=== PATIENT | female | born 1970 | race Caucasian/White ===

== ENCOUNTER → 2022-09-20 10:31 | Outpatient (BNVA) | payer BC, SELFPAY | PROVIDERS: PCP Nurse Practitioner Family; Visit Provider Surgery Vascular Surgery ==

== ENCOUNTER 2022-10-03 13:23 | Outpatient (REF) | payer BC, SELFPAY ==
--- NOTE | ~2022-10-03 | US_ITS ---
EXAMINATION: US LOWER EXTREMITY VENOUS (REFLUX EXAM), BILATERAL CLINICAL INDICATION: Varicose veins of the right lower extremity COMPARISON: None. TECHNIQUE: Color flow triplex imaging and compression Doppler was performed to evaluate both the deep and the superficial systems bilaterally. To evaluate the superficial system, the examination was performed in the upright position. Color-flow Doppler ultrasound and compression ultrasound were utilized. In addition, maneuvers were utilized to demonstrate reflux. FINDINGS: RIGHT: 1. DEEP VENOUS ULTRASOUND OF THE RIGHT LOWER EXTREMITY: Common Femoral Vein: Compressible, normal respiratory variation and augmented flow. Popliteal Vein: Compressible, normal augmentation. Deep Venous Reflux: There is no evidence of reflux in the deep system in either the common femoral vein or the popliteal vein. There is no evidence of a Olivares's cyst. 2. SUPERFICIAL ULTRASOUND WITH DOPPLER OF RIGHT LOWER EXTREMITY: RIGHT GREAT SAPHENOUS VEIN: Saphenofemoral Junction: 5 mm. No reflux. Proximal Thigh: 7 mm. No reflux. Mid Thigh: 4 mm. No reflux. Above Knee: 4 mm. No reflux. Below Knee: 3 mm. No reflux. Mid Calf: 2 mm. No reflux. Ankle: 2 mm. No reflux. DUPLICATED GREAT SAPHENOUS VEIN: None RIGHT SMALL SAPHENOUS VEIN: Proximal: 4 mm. No reflux. Distal: 3 mm. No reflux. PERFORATORS: None LEFT: 1. DEEP VENOUS ULTRASOUND OF THE LEFT LOWER EXTREMITY: Common Femoral Vein: Compressible, normal respiratory variation and augmented flow. Popliteal Vein: Compressible, normal augmentation. Deep Venous Reflux: There is no evidence of reflux in the deep system in either the common femoral vein or the popliteal vein. There is no evidence of a Olivares's cyst. 2. SUPERFICIAL ULTRASOUND WITH DOPPLER OF LEFT LOWER EXTREMITY: LEFT GREAT SAPHENOUS VEIN: Saphenofemoral Junction: 5 mm. No reflux. Proximal Thigh: 4 mm. 2440 ms reflux. Mid Thigh: 4 mm. 1652 ms reflux. Above Knee: 4 mm. 2344 ms reflux. Below Knee: 3 mm. 2280 ms reflux. Mid Calf: 2 mm. 1956 ms reflux. Ankle: 2 mm. No reflux. DUPLICATED GREAT SAPHENOUS VEIN: None LEFT SMALL SAPHENOUS VEIN: Proximal: 2 mm. No reflux. Distal: 2 mm. No reflux. PERFORATORS: None US/US venous duplex LE BI IMPRESSION: 1. Abnormally prolonged reflux within the left great saphenous vein. No reflux seen in the right lower extremity. 2. No evidence of DVT, bilaterally. Abnormal lower extremity venous reflux times: Superficial and deep calf veins: >500 ms Femoropopliteal veins: >1000 ms Perforating veins: >350 ms Labpaulina N, Leta J, Ck L, Albert AK, Torres SS, Bhavya Klein, Elise WH. Definition of venous reflux in lower-extremity veins.J Vasc Surg. 2003; [id number].
== END 2022-10-03 13:24 | disposition home or self-care (01) ==
LOC: HO.US 13:23
PROVIDERS: PCP Nurse Practitioner Family; Visit Provider Surgery Vascular Surgery
DX: I83.11 Varicose veins of right lower extremity with inflammation (principal)
CPT/HCPCS: 93970

== ENCOUNTER 2022-11-29 14:46 | Outpatient (AMB) | payer BC, SELFPAY ==
[2022-11-29 14:49] VITALS: BMI 27.4
--- NOTE | 2022-11-29 14:49 | A.OFFVIS_ITS ---
Intake Vital Signs 11/29/22 14:49 Height 5 ft 1 in Weight 145 lb BMI 27.4 Intake Visit Reasons: follow up US 10/03/2022 Intake Note: follow up bilateral LE 10/03/22 for VV Left LE worse than Right. Bulging VV on Left LE w/ swelling and pain. 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 Accompanied by: Self / Same As Patient Allergies bacitracin Adverse Reaction (Intermediate, Verified 11/29/22 14:55) Rash band aid adhesive Adverse Reaction (Intermediate, Uncoded 11/29/22 14:55) Unknown HPI follow up 10/03/2022 HPI Details Very pleasant 52-year-old female presents for follow-up regarding pains full varicosities. In particular there are left lower extremity. 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 She continues to notice it more so on the left lower extremity. She has had a trial of compression with minimal relief. She now presents for follow-up with venous insufficiency testing. Of note she does report a prior sensitivity to adhesive. [facility] Surgical History H/O bilateral oophorectomy H/O mastectomy H/O tubal ligation History of ankle surgery Social History Patient Tobacco Use Status: Never used Tobacco Review of Systems Const Reports as per HPI ENT Reports no additional complaints Card Denies chest pain, Denies chest pain at rest and Denies chest pain with activity Resp Denies chest congestion and Denies cough GI Reports no additional complaints Musc Details: pain over varicosities, aching of lower extremities, swelling, cramping, heaviness and tiredness, itching Denies abnormal gait Skin/Breast Reports pruritus and Denies wounds Neuro Reports no additional complaints and Denies abnormal gait Psych Denies no additional complaints Physical Exam Vital Signs: BMI result Body Mass Index 27.4 Const General: cooperative, healthy appearing and comfortable Orientation/consciousness: oriented to person, oriented to place and oriented to time Neck Carotids: no bruits Chest Chest palpation & inspection: normal inspection of the chest and normal palpation of entire chest wall Resp Effort & Inspection: normal respiratory effort and able to speak in complete sentences Cardio Rate: regular rate Heart sounds: S1 normal heart sound present and S2 normal heart sound present Peripheral pulses: Peripheral pulses 2+ throughout GI Inspection: Yes normal to inspection Skin Other: +2 edema, large rope-like varicosities greater than 4 mm left calf CEAP Classification C4 - skin color changes Ep - Etiology Primary As - superficial veins P - reflux General skin exam: dry skin Neuro General: oriented to person, oriented to place and oriented to time Extrem Right lower extremity: full ROM, normal capillary refill and edema Left lower extremity: full ROM, normal capillary refill and edema Psych Mental Status: mental status grossly normal Results Reviewed Results Reviewed: Brief summary of venous insufficiency testing is as follows: right great saphenous vein: negative right small saphenous vein: negative right accessory vein: none present left great saphenous vein: Positive left small saphenous vein: negative left accessory vein: none present Please note there is no evidence of any venous aneurysms or significant tortuosity Assessment & Plan Assessment & Plan (1) Varicose veins of left lower extremity with inflammation: Code(s): I83.12 - Varicose veins of left lower extremity with inflammation Plan: This patient has varicose veins with inflammation. They continue to be a source of discomfort for the patient. The patient has tried conservative treatment with compression, leg elevation and exercise program for over 3 months time. They have been compliant with all treatment. This has provided minimal relief for the patient. I do not anticipate this course of treatment will alter the underlying etiology. The patient has been scheduled for lower extremity venous treatment inclusive of --- left great saphenous vein radiofrequency ablation. Risks, benefits, and complications of this procedure has been discussed in detail with the patient including but not limited to bleeding, infection, and the development of a DVT. The patient has demonstrated a clear understanding and has consented. We will schedule the patient as soon as possible. Thank you for allowing us to participate in this patient's care. If there are any questions or concerns please do not hesitate to contact us. Coding Level of Care Code Est Pt Level 4 (70853) Diagnoses Varicose veins of left lower extremity with inflammation I83.12
== END 2022-11-29 15:31 | disposition home or self-care (01) ==
PROVIDERS: PCP Nurse Practitioner Family; Visit Provider Surgery Vascular Surgery
DX: I83.12 Varicose veins of left lower extremity with inflammation (principal)
CPT/HCPCS: 99214

== ENCOUNTER → 2022-11-29 14:46 | Outpatient (BNVA) | payer BC, SELFPAY | PROVIDERS: PCP Nurse Practitioner Family; Visit Provider Surgery Vascular Surgery ==